=== PATIENT | female | born 1935 | race Caucasian/White ===

== ENCOUNTER 2016-06-16 21:18 | Observation (INO) | payer MEDICARE ==
[2016-06-16] MEDS ORDERED: FENTANYL 100 MCG/2 ML VIAL ONE (21:50)
[2016-06-16] MEDS ORDERED: cloNIDine HCL 0.1 MG TABLET PO ONE (21:57)
[2016-06-16] MEDS ORDERED: HOME MEDICATION LIST NEEDED 1 EA EACH MISC ONE (22:24)
[2016-06-16] MEDS ORDERED: ACETAMINOPHEN 325 MG TABLET PO PRN (22:31)
--- NOTE | 2016-06-16 22:55 | ER PHYSICIAN DOCUMENTATION ---
Physician Documentation [facility] Name:Renata Kim Age:80 yrs Sex:Female :1935 Arrival Date:06/16/2016 Time:21:18 Bed3 Private MD:Yo Mcnally ED PhysicianMeJuan appiah Disposition: 06/16/16 22:16 Admit ordered for Yo Mcnally. Preliminary diagnosis are Sciatica, Difficulty Walking, Hypertension - urgency. - Bed requested for Medical/Surgical. - Condition is Fair. - Problem is new. - Symptoms are unchanged. 23 HR OBS Yes HPI: 06/16 22:16 This 80 yrs old Female presents to ER via EMS with complaints of Back Pain. 22:16 The patient presents with pain that is acute, with no known mechanism of injury. The symptoms are located in the low back. Onset: The symptoms/episode began/occurred 1 week(s) ago. The pain radiates down the patient's right lower extremity. Associated signs and symptoms: Pertinent negatives: numbness, urinary retention. The problem was sustained without known cause. Modifying factors: the patient symptoms are aggravated by movement. Severity of symptoms: in the emergency department the symptoms a " 10" out of "10". The patient has not experienced similar symptoms in the past. The patient has been recently seen by a physician: the patient's primary care provider, Dr. Mcnally- today who rx'd some flexeril, but pt has also been using vicodin w/o relief . 22:17 Pt called 911 as she was having a lot of pain and had difficulty walking around. . jm Historical: - Allergies: PENICILLINS; SULFA (SULFONAMIDES); - Home Meds: 1. Metoprolol Tartrate Oral 2. simvastatin Oral 3. Cyclobenzaprine Oral 4. Furosemide Oral 5. Potassium Chloride Oral 6. levothyroxine oral 7. Nexium Oral - PMHx: Hypertension; - PSHx: Hysterectomy; - Tetanus: < 10 years. - Ebola Screening: : Patient denies exposure to infectious person. Patient denies travel to an Ebola-affected area in the 21 days before illness onset. . - Immunization history: Flu Vaccine < 1 year. - Social history: Smoking status: Patient states was never smoker of tobacco. Patient/guardian denies using alcohol. ROS: 22:19 Constitutional: Negative for fatigue, fever. 22:19 Abdomen/GI: Negative for nausea, vomiting. 22:19 Back: Positive for pain at rest, pain with movement, radiated pain. 22:19 : Negative for urinary symptoms, difficulty urinating, bladder incontinence. 22:19 MS/extremity: Positive for paresthesias. 22:19 Neuro: Positive for tingling, Negative for gait disturbance, numbness. 22:19 All other systems are negative. Exam: 22:19 Constitutional: The patient appears alert, awake, obese. 22:19 Eyes: Periorbital structures: appear normal, Conjunctiva: normal. 22:19 ENT: Mouth: is normal, Voice: is normal. 22:19 Neck: External neck: is normal, ROM/movement: is normal. 22:19 Cardiovascular: Rate: normal, Rhythm: regular. 22:19 Respiratory: Respirations: normal, Breath sounds: are normal. 22:19 Abdomen/GI: Bowel sounds: normal, Palpation: abdomen is soft and non-tender. 22:19 Back: pain, that is moderate, of the left low back, CVA tenderness, is absent, vertebral tenderness, is not appreciated. 22:19 : CVA tenderness, is absent, Bladder: distension, is not appreciated. 22:19 Musculoskeletal/extremity: Weight bearing: able to fully bear weight, but walks very gingerly. , Calves: are non-tender. 22:19 Neuro: Motor: 4/5 in the L hips 2/2 pain. , Sensation: is normal, Deep tendon reflexes are 1 (trace) + in the right patellar and left patellar. 22:19 Psych: Behavior/mood is pleasant, cooperative, Affect is calm. Vital Signs: 21:27 BP 205 / 101; Pulse 89; Resp 20; Temp 98; Pulse Ox 91% on R/A; Weight 83.91 kg; Height lb 5 ft. 3 in. (160.02 cm); Pain 10/10; 22:17 BP 170 / 95; Pulse 73; Resp 20; Pulse Ox 90% on R/A; lb 22:53 BP 170 / 95; Pulse Ox 92% on R/A; Pain 8/10; lb 21:27 Body Mass Index 32.77 (83.91 kg, 160.02 cm) lb MDM: 21:25 Patient medically screened. love 22:21 Differential diagnosis: chronic back pain, sprain, sciatica. Data reviewed: vital jm signs, nurses notes, old medical records, and as a result, I will admit patient. Counseling: I had a detailed discussion with the patient and/or guardian regarding: the historical points, exam findings, and any diagnostic results supporting the discharge/admit diagnosis, the need for further work-up and treatment in the hospital. Medication response: The patient's symptoms are unchanged despite medication administration. Physician consultation: Yo Mcnally MD regarding admission, and will see patient tomorrow. Admission orders: after a detailed discussion of the patient's condition and case, the admit orders are written by me. ED course: Pt w minimal relief w fentanyl and it did drop her 02, so I worry about sending her home w strong pain meds and this occurring at home w/o 02. Pt is 80, lives alone and is definitely a fall risk when watching her wt bare. Besides that her BP is out of control and needs close monitoring. I spoke w Dr. Mcnally who agrees w admission and will see in AM. . Dispensed Medications: 21:44 Drug: fentaNYL [place] 100 mcg; Route: Intranasal; Site: both nares; lb 22:18 Follow up: Response: Pain is decreased lb 21:52 Drug: cloNIDine 0.1 mg; Route: PO; lb 22:18 Follow up: Response: Blood pressure is lowered lb 22:41 CANCELLED (Other Intervention Used): Percocet Tablet (5 mg-325 mg) 6 tabs PO Per lb package directions; PREPAC, 1-2 tabs by mouth every 4-6 hours as needed for pain Signatures: Juan Ortiz MD MD jm Bollock, Lynda lb
--- NOTE | 2016-06-16 22:55 | ER NURSING DOCUMENTATION ---
Nurse's Notes [facility] Name:Renata Kim Age:80 yrs Sex:Female :1935 Arrival Date:06/16/2016 Time:21:18 Bed3 Private MD:Yo Mcnally Diagnosis:Sciatica;Difficulty Walking;Hypertension-urgency Presentation: 06/16 21:24 Presenting complaint: Patient states: lower back pain radiating down left leg for 2 lb days. placed on muscle relaxer today, no relief. Transition of care: Home. Notified ED Physician of Angel Brennan notified. 21:24 Acuity: RUPA 4 lb 21:24 Method Of Arrival: EMS: 410 lb Triage Assessment: 21:26 General: Appears uncomfortable, Behavior is appropriate for age, pleasant. Pain: lb Complains of pain in left low back Pain radiates to left leg Pain currently is 10 out of 10 on a pain scale. Musculoskeletal: No deficits noted. Circulation, motion, and sensation intact Capillary refill < 3 seconds. Historical: - Allergies: PENICILLINS; SULFA (SULFONAMIDES); - Home Meds: 1. Metoprolol Tartrate Oral 2. simvastatin Oral 3. Cyclobenzaprine Oral 4. Furosemide Oral 5. Potassium Chloride Oral 6. levothyroxine oral 7. Nexium Oral - PMHx: Hypertension; - PSHx: Hysterectomy; - Tetanus: < 10 years. - Ebola Screening: : Patient denies exposure to infectious person. Patient denies travel to an Ebola-affected area in the 21 days before illness onset. . - Immunization history: Flu Vaccine < 1 year. - Social history: Smoking status: Patient states was never smoker of tobacco. Patient/guardian denies using alcohol. Screenin:28 Infectious Disease Risk None. Abuse screen: Denies threats or abuse. Denies injuries lb from another. Nutritional screening: No deficits noted. Assessment: 21:28 See Triage Assessment done by same RN. Neuro: No deficits noted. lb Vital Signs: 21:27 BP 205 / 101; Pulse 89; Resp 20; Temp 98; Pulse Ox 91% on R/A; Weight 83.91 kg; Height lb 5 ft. 3 in. (160.02 cm); Pain 10/10; 22:17 BP 170 / 95; Pulse 73; Resp 20; Pulse Ox 90% on R/A; lb 22:53 BP 170 / 95; Pulse Ox 92% on R/A; Pain 8/10; lb 21:27 Body Mass Index 32.77 (83.91 kg, 160.02 cm) lb ED Course: 21:19 Patient arrived in ED. em2 21:19 Yo Mcnally MD is Private Physician. em2 21:24 Ave Chris is Primary Nurse. lb 21:25 Triage completed. lb 21:28 Juan Ortiz MD is Attending Physician. jm 21:28 Valuables Remains with patient Bed in low position. Call light in reach. lb 22:08 Yo Mcnally MD is Referral Physician. jm 22:16 Yo Mcnally MD is Admitting Physician. jm 22:54 Inserted peripheral IV: 22 gauge in right Wrist Missed attempts: 22 gauge X 2. lb Administered Medications: 21:44 Drug: fentaNYL [place] 100 mcg; Route: Intranasal; Site: both nares; lb 22:18 Follow up: Response: Pain is decreased lb 21:52 Drug: cloNIDine 0.1 mg; Route: PO; lb 22:18 Follow up: Response: Blood pressure is lowered lb 22:41 CANCELLED (Other Intervention Used): Percocet Tablet (5 mg-325 mg) 6 tabs PO Per lb package directions; PREPAC, 1-2 tabs by mouth every 4-6 hours as needed for pain Outcome: 22:08 Discharge ordered by . 22:16 Decision to Admit by Provider. 22:53 Admitted to Med/surg accompanied by nurse, via stretcher. lb 22:53 Condition: stable 22:53 Discharge Assessment: Patient awake, alert and oriented x 3. No cognitive and/or functional deficits noted. Patient verbalized understanding of disposition instructions. 22:53 Instructed on need to admit 22:54 Patient left the ED. lb Signatures: Juan Ortiz MD MD Wilbert-reg, Graciela-reg em2 Ave Chris lb
[2016-06-16] MEDS ORDERED: LISINOPRIL 10 MG TABLET PO SCH (23:45)
[2016-06-16] MEDS ORDERED: LISINOPRIL 10 MG TABLET PO ONE (23:57)
[2016-06-17] MEDS: MORPHINE SULFATE 2 MG/ML SYR IV PRN ×3 (01:32→06:24)
[2016-06-17] MEDS: oxyCODONE HCL IR 20 MG TABLET PO PRN ×2 (03:16→08:56)
[2016-06-17 05:31] VITALS: PULSE 74
[2016-06-17 05:49] LABS: BLOOD UREA NITROGEN 13 mg/dL (7-17); CALCIUM 8.9 mg/dL (8.4-10.2); CHLORIDE 96 mmol/L (98-107); CREATININE 0.6 mg/dL (0.5-1.0); GLUCOSE 115 mg/dL (70-100); POTASSIUM 2.7 mmol/L (3.5-5.1); SODIUM 133 mmol/L (137-145)
[2016-06-17] MEDS ORDERED: LEVOTHYROXINE 75 MCG TABLET PO SCH (07:40)
[2016-06-17] MEDS ORDERED: DIPHENHYDRAMINE 25 MG CAPSULE PO PRN (07:45)
[2016-06-17] MEDS ORDERED: PANTOPRAZOLE 40 MG TABLET PO SCH (07:45)
[2016-06-17] MEDS ORDERED: predniSONE 10 MG TABLET PO SCH (08:00)
[2016-06-17] MEDS ORDERED: FUROSEMIDE 20 MG TABLET PO SCH (08:00)
[2016-06-17] MEDS: POTASSIUM CHLORIDE ER 20 MEQ TABLET PO SCH ×2 (08:29→12:33)
[2016-06-17] MEDS ORDERED: POLYETHYLENE GLYCOL 3350 17 GM POWD.PACK PO SCH (09:00)
[2016-06-17] MEDS ORDERED: GABAPENTIN 100 MG CAPSULE PO SCH (09:00)
[2016-06-17] MEDS ORDERED: ACETAMINOPHEN ER 650 MG TAB.SR.8HR PO SCH (09:00)
[2016-06-17 12:18] VITALS: BP 138/53; RESP 18; TEMP 97.6; O2SAT 90
--- NOTE | 2016-06-17 12:41 | DC SUMMARY: IM Note ---
Discharge Summary: IM/Peds Provider: Date of Admission: 06/16/16 Admitting Provider: MICHAEL CORREA MD Attending Provider: MICHAEL CORREA MD Discharging Provider: MICHAEL CORREA MD Primary Care Provider: Discharge Date: 06/17/16 - Diagnosis (1) Hypertensive urgency Status: Acute (2) Hypokalemia Status: Acute (3) Hypomagnesemia Status: Acute (4) IBS (irritable bowel syndrome) Status: Acute (5) Interstitial cystitis (chronic) with hematuria Status: Acute (6) Left lumbar radiculopathy Status: Acute (7) Pedal edema Status: Acute - Time Spent with Patient She was admitted for observation last night because of intractable left sided sciatica and associated severe hypertension. I saw her in the clinic that same day and had increased her ibuprofen to 600 mg 3 times daily and added cyclobenzaprine. She had already tried some old hydrocodone at home and had not found it helpful. In the evening she had severe pain so called the ambulance came to the emergency department. The pain was controlled primarily with oxycodone through the night. In the morning I gave her prednisone 20 mg and gabapentin 100 mg. At some point after that she had an episode of emesis. No nausea after that. PT evaluated her and felt she was safe for discharge. I elected not to image her, since she had no risk factors for fracture and imaging was unlikely to change the treatment at this stage. I will reevaluate her in 10 days or so. She was discharged to her daughter's care. See D/C med list. Discharge - Patient/Caregiver Discharge Instructions Activity Level: As tolerated. Avoid strict bedrest. Diet: regular Follow up: MICHAEL CORREA MD [Primary Care Provider] - 2 Weeks Home Medications: predniSONE [Deltasone*] 5 - 20 mg PO DAILY@0800 #11 tablet oxyCODONE HCL/ACETAMINOPHEN [Endocet 5-325 Tablet] 1 tab PO TID PRN #20 tab PRN Reason: Pain, Back Gabapentin [Neurontin*] 100 mg PO TID #50 capsule Esomeprazole Magnesium [Nexium 24Hr] 20 mg PO EVERY MORNING #30 tablet. Disposition: HOME, SELF-CARE Discharge Summary Data - Medication History Medication History: Home Medications Acetaminophen ER [Tylenol ER*] 650 mg PO TID 30 Days 06/17/16 Esomeprazole Magnesium [Nexium 24Hr] 20 mg PO EVERY MORNING #30 tablet. Furosemide [Lasix*] 20 mg PO DAILY 06/17/16 Gabapentin [Neurontin*] 100 mg PO TID #50 capsule 06/17/16 Imipramine HCl [Tofranil] 20 mg PO HS #0 06/17/16 Levothyroxine [Synthroid*] 75 mcg PO BEFORE BREAKFAST 06/17/16 Multivitamins,Therapeutic [Thera Multivitamin*] 1 tab PO DAILY 06/17/16 Polyethylene Glycol 3350 [Miralax*] 17 gm PO DAILY PRN powd.pack 06/17/16 Potassium Chloride ER [K-Dur*] 20 meq PO BID@0800,1200 tablet 06/17/16 Simvastatin 40 mg PO HS 06/17/16 Vit C/E/Zn/Coppr/Lutein/Zeaxan [Preservision Areds 2 Softgel] 1 cap PO BID 06/17 metoprolol SUCC ER [Toprol Xl*] 75 mg PO DAILY #0 06/17/16 oxyCODONE HCL/ACETAMINOPHEN [Endocet 5-325 Tablet] 1 tab PO TID PRN #20 tab predniSONE [Deltasone*] 5 - 20 mg PO DAILY@0800 #11 tablet 06/17/16 Inpatient Medications 06/16/16 23:47 Morphine Sulfate 1 - 2 mg IV Q2H PRN 06/17/16 07:40 Levothyroxine [Synthroid] 75 mcg PO DAILY@0630 06/17/16 07:45 Diphenhydramine [Benadryl] 25 mg PO HS PRN Pantoprazole [Protonix] 40 mg PO BEFORE BREAKFAST 06/17/16 08:00 Furosemide [Lasix] 20 mg PO DAILY@0800 Potassium Chloride ER [K-Dur] 20 meq PO BID@0800,1200 metoprolol SUCC ER [topROL XL] 100 mg PO DAILY@0800 predniSONE [Deltasone] 20 mg PO DAILY@0800 06/17/16 09:00 Acetaminophen ER [Tylenol ER] 650 mg PO TID Gabapentin [Neurontin] 100 mg PO TID Polyethylene Glycol 3350 [miraLAX] 17 gm PO DAILY 06/17/16 21:00 Simvastatin [Zocor] 20 mg PO HS Simvastatin [Zocor] 40 mg PO HS 03/31/17 06:30 Levothyroxine [Synthroid] 75 mcg PO BEFORE BREAKFAST Procedures and tests throughout hospitalization: Completed Lab Orders 06/17/16 05:00 BMP [BASIC METABOLIC PANEL] [CHEM] AMDRAW Pending Orders 06/16/16 23:47 Morphine Sulfate 1 - 2 mg IV Q2H PRN 06/17/16 07:37 Occupation Therapy Eval and Treat [OT] Routine 06/17/16 07:40 Levothyroxine [Synthroid] 75 mcg PO DAILY@0630 06/17/16 07:45 Diphenhydramine [Benadryl] 25 mg PO HS PRN Pantoprazole [Protonix] 40 mg PO BEFORE BREAKFAST 06/17/16 08:00 Furosemide [Lasix] 20 mg PO DAILY@0800 Potassium Chloride ER [K-Dur] 20 meq PO BID@0800,1200 metoprolol SUCC ER [topROL XL] 100 mg PO DAILY@0800 predniSONE [Deltasone] 20 mg PO DAILY@0800 06/17/16 09:00 Bladder Scan/ PVR . Acetaminophen ER [Tylenol ER] 650 mg PO TID Gabapentin [Neurontin] 100 mg PO TID Polyethylene Glycol 3350 [miraLAX] 17 gm PO DAILY 06/17/16 12:31 Discharge ONCE 06/17/16 21:00 Simvastatin [Zocor] 20 mg PO HS Simvastatin [Zocor] 40 mg PO HS 06/18/16 06:30 Levothyroxine [Synthroid] 75 mcg PO BEFORE BREAKFAST Labs on day of discharge: Labs from last 24 hours 06/17/16 05:00 Sodium 133 L Potassium 2.7 L D Chloride 96 L Carbon Dioxide 26 BUN 13 Creatinine 0.6 GFR Calculation Not Reportable Glucose 115 H Calcium 8.9 IM: Discharge Physical Exam - I&O/Vital Signs I&O: Intake & Output 06/16/16 06/17/16 06/17/16 21:59 05:59 13:59 Intake Total 340 Output Total 1100 Balance -760 Weight 90 kg Intake: IV 40 Left Hand 40 Oral 300 Output: Urine 1100 Other: Urine Appearance Clear Clear Urine Color Yellow Yellow Voiding Method Toilet Toilet Vital Signs: Last Vital Signs Temp 36.4 C 06/17/16 12:16 Pulse 74 06/17/16 12:16 Resp 18 06/17/16 12:16 BP 138/53 06/17/16 12:16 Pulse Ox 90 06/17/16 12:16 Oxygen Flow Rate 1 Oxygen Delivery Method Room Air - Constitutional General appearance: Present: obese. Absent: acute distress - ENT ENT exam: Present: mucous membranes dry - Respiratory Respiratory exam: Present: clear. Absent: rales - Cardiovascular Cardiovascular exam: Present: RRR. Absent: systolic murmur - GI/Abdominal GI/Abdominal exam: Present: soft. Absent: distended, tenderness - Extremities Exam Extremities exam: Absent: calf tenderness, Margarito's Sign, edema - Back Exam Back exam: Present: paraspinal tenderness (L only - mild-mod.). Absent: vertebral tenderness - Neurological Exam Neurological exam: Present: oriented X3 - Psychiatric Psychiatric exam: Present: normal mood - Allied Health Notes Allied health notes reviewed: nursing
--- NOTE | 2016-06-17 13:46 | HISTORY & PHYSICAL ---
DATE OF ADMISSION: 06/16/16 HISTORY OF PRESENT ILLNESS: This 80-year-old woman with a history of intermittent low back problems for years, presented to my clinic yesterday with a 4 day history of an exacerbation of her chronic intermittent low back pain with new radiation into the left leg posteriorly and laterally to the knee and then anteriorly on the bates. She had been trying low dose ibuprofen with limited improvement. I prescribed some cyclobenzaprine and advised increasing the dose of ibuprofen to 600 mg t.i.d. She also had an elevated blood pressure in the clinic initially, although it dropped down to 152/90 by the time I sent her home. In the evening last night she had an exacerbation of her low back pain with radicular symptoms in the left leg. She called the ambulance and was brought in for evaluation in the emergency department. There with a tiny dose of fentanyl she desaturated to 86% O2 sat on room air and had inadequate control of her pain. She was admitted for observation to get better pain control. She also had severe hypertension with a systolic BP in the ED of 205. She required clonidine PO to get it down. She needs some monitoring. PAST MEDICAL HISTORY 1. Degenerative disk disease of the lumbar spine with intermittent radiculopathy. No previous history of surgery or epidural steroid injections. She feels that physical therapy has been of limited benefit, but she has not continued an exercise regimen at home. She last did PT in December 2015. 2. Hypertension generally under good control with metoprolol succinate 50 mg daily and furosemide 20 mg daily. 3. Pedal edema, generally well controlled with furosemide. 4. Irritable bowel syndrome. 5. GERD. 6. Hypokalemia. Generally well controlled with 20 mEq of potassium daily. 7. Hypothyroidism well controlled with the most recent TSH of 2.2 in November 2015. 8. History of microscopic hematuria. 9. Mixed hyperlipidemia. 10. History of neutropenia. 11. Interstitial cystitis. 12. Osteoarthrosis of the hands. 13. History of recurrent UTIs. MEDICATIONS ON ADMISSION Ibuprofen 600 mg t.i.d. Acetaminophen arthritis strength 650 mg extended release t.i.d. Librax 1 daily as needed for IBS. Cyclobenzaprine 5 mg t.i.d. Nexium 20 mg daily. Furosemide 20 mg every morning. Imipramine 20 mg at bedtime, two 10 mg tablets. Levothyroxine 75 mcg daily. Melatonin 10 mg extended release nightly p.r.n. Metoprolol succinate 50 mg daily. Multivitamin daily. Potassium chloride 20 mEq daily. Simvastatin 40 mg nightly. ALLERGIES: Include penicillin which causes hives. Sulfa causes nausea. SOCIAL HISTORY: This patient is a who lives alone here in [facility]. She has a daughter in [place] who helps out frequently and is planning on coming up today. She is a nonsmoker, nondrinker. REVIEW OF SYSTEMS GENERAL: No fever, chills or malaise. RESPIRATORY: No cough or shortness of breath. CARDIOVASCULAR: No palpitations or chest pain. ABDOMEN: Mild constipation (last bowel movement 2 days ago). No nausea, vomiting or new abdominal pains. GENITOURINARY: No dysuria or frequency. MUSCULOSKELETAL: Severe low back pain with radiation into the left leg. SKIN: No rash. PHYSICAL EXAMINATION VITAL SIGNS: The patients vital signs included a temp of 36.7, BP 178/87 this morning, but was up to 205 initially in the ED systolic. Pulse of 74, respirations 16, O2 sat 97% on 1 liter now, but was 89% on room air initially in the ED and then dropped to 85% after getting opioids. Her pain scale is currently 5/10 but reached 10/10 last night. HEENT: Oral mucosa is dry. LUNGS: Clear. HEART: Regular rate and rhythm, no murmur. ABDOMEN: Soft with some very minimal diffuse tenderness. EXTREMITIES: Without edema. BACK: Her low back is moderately tender on the left upper buttock and she has a positive straight leg raising test at 30 degrees on the left, negative on the right. LABORATORY DATA: The patients sodium was 133, potassium 2.7, chloride 96, CO2 26, creatinine 0.6, glucose fasting 115, calcium 8.9. IMPRESSION 1. Intractable left lumbar radiculopathy. 2. Hypertensive urgency related to pain, stress and ibuprofen use on top of her chronic hypertension. 3. Complex past medical history as listed above. PLAN: I placed the patient on some prednisone at 20 mg q.a.m. (avoiding higher doses because of her GERD) and gabapentin. My hope is that she will tolerate these and get some improvement in her sciatica. She is getting some relief from oxycodone but it seems to last only an hour or so at 5 mg dosing. I will have PT and OT evaluate her today. The hope is to be able to send her home with her daughter to [place] late this afternoon. For her BP I gave her a single dose of Lisinopril last night. She received 0.1 mg of clonidine in the ED. I will increase her usual metoprolol succinate to 100 mg daily this morning and see how she does. MTDD
[2016-06-17] MEDS ORDERED: SIMVASTATIN 20 MG TABLET PO SCH ×2 (21:00)
[2016-06-18] MEDS ORDERED: LEVOTHYROXINE 75 MCG TABLET PO SCH (06:30)
== END 2016-06-17 12:31 | disposition home or self-care (01) ==
LOC: ER 21:18 → IN 22:52
PROVIDERS: ADMIT Family Medicine; ATTEND Family Medicine
DX: I10 Essential (primary) hypertension (principal); M54.9 Dorsalgia, unspecified; K21.9 Gastro-esophageal reflux disease without esophagitis; M51.16 Intervertebral disc disorders with radiculopathy, lumbar region; K58.9 Irritable bowel syndrome, unspecified; E03.9 Hypothyroidism, unspecified; E78.5 Hyperlipidemia, unspecified; M15.9 Polyosteoarthritis, unspecified; N30.81 Other cystitis with hematuria; D70.9 Neutropenia, unspecified; Z87.440 Personal history of urinary (tract) infections; E87.6 Hypokalemia; Z79.899 Other long term (current) drug therapy
CPT/HCPCS: 36415; 80048; 96374; 96376; 99285; A0425; A0429; G0378; G8987; G8988; G8989; J2270; J7512